=== PATIENT | male | born 1950 | race African-American/Black ===

== ENCOUNTER 2016-06-04 08:04 | Day surgery (SDC) | payer MEDICARE, MEDICAID ==
[~2016-06-04 08:04] MED LIST: ASPIRIN EC81 MG PO; BACTRIM DS TAB1 EAC2 PO; CLARITIN10 M6 PO; COREG6.25 M1 PO; COZAAR50 M1 PO; DELTASONE10 MG PO; DELTASONE20 MG PO; ENALAPRIL; ERY-TAB250 M1 PO; ESBRIET267 MG PO; FLOMAX0.4 M1 PO; FLONASE ALLERG9.9 ML; GLUCOPHAGE500 M3 PO; HUMALOG MI100 UNITS1 SC; HYDROCODON-ACE1 EA16 PO; LANTUS100 UNITS/ SC; METFORMIN HCL500 MG PO; MILK OF MAGNESIA PO; NEURONTIN400 M1 PO; NEURONTIN600 M1 PO; NEXIUM40 M1 PO; OMEPRAZOLE20 M3 PO; OXYGEN; PROVENTIL HFA6.7 GM IH; STOOL SOFTENER1 EAC4 PO; TESSALON PERLE100 M1 PO; VASOTEC20 M1 PO; VENTOLIN HFA18 G2 PO; ZOCOR40 M1 PO
[2016-06-04] MEDS ORDERED: HUMALOG100 UNIT/2 SC (09:16)
[2016-06-04] MEDS ORDERED: PREDNISONE10 M1 PO (09:17)
[2016-06-04] MEDS ORDERED: NEURONTIN300 M1 PO (09:17)
[2016-06-04] MEDS ORDERED: NEURONTIN300 M1 (09:18)
[2016-06-04 09:35] LABS: BASO % 0.2 % (0-2); EOSINOPHIL ABSOLUTE COUNT 0.1 tho/cmm (0.0-0.7); HCT-HEMATOCRIT 34.6 % (36.0-53.5); HGB-HEMOGLOBIN 11.1 gm/dl (13.5-17.0); IMMATURE GRANULOCYTES ABSOLUTE 0.03 tho/cmm (0-0.03); IMMATURE GRANULOCYTES PERCENT 0.3 % (0-0.3); LYMPH % 16.8 % (20-45); LYMPH ABSOLUTE COUNT 1.8 tho/cmm (0.8-4.5); MCH (MEAN CORPUSCULAR HGB) 26.8 pg (28.0-32.0); MCHC MEAN CORPUSCULAR HGB CONC 32.1 % (32.0-36.0); MCV (MEAN CELL VOLUME) 83.6 fl (82.0-96.0); MEAN PLATELET VOLUME 9.6 cmc (9.4-12.4); MONO % 4.7 % (0-12); MONOCYTE ABSOLUTE COUNT 0.5 tho/cmm (0.0-1.2); NEUTROPHIL ABSOLUTE COUNT 8.2 tho/cmm (1.6-8.0); NEUTROPHIL-AUTOMATED 8.2 tho/cmm (1.6-8.0); PLATELET COUNT 248 tho/cmm (150-450); RED BLOOD COUNT 4.14 mil/cmm (4.40-5.70); RED CELL DISTRIBUTION WIDTH 16.3 % (12.4-16.4); WHITE BLOOD COUNT 10.6 tho/cmm (4.0-10.0)
[2016-06-04 09:47] LABS: ANION GAP 11 mmol/L (0-20); BLOOD UREA NITROGEN 11 mg/dl (6-24); CALCIUM 8.5 mg/dl (8.5-10.5); CARBON DIOXIDE-VENOUS 28 mmol/L (22-32); CHLORIDE 102 mmol/l (96-110); CREATININE 0.81 mg/dl (0.60-1.30); GLUCOSE 193 mg/dL (70-110); SODIUM 137 mmol/L (135-145); eGFR VALUE FOR BLACK >90 mL/Min
--- NOTE | 2016-06-05 07:55 | NUR ---
ESTRELLA MULLEN NOTE-VISITED WITH PATIENT HE WAS SITTING UP IN CHAIR STATING HE IS NOT DOING VERY WELL. STATES THE BACK OF HIS LEFT LEG HURTS AND IS SLIGHTLY PUFFY AND CAUSES HIM TO LIMP WHEN HE WALKS. BRISEYDA SAYS HE USUALLY DOES HAVE PROBLEMS WITH HIS LEG BUT THIS IS DIFFERENT AND IT IS NOT RELATED TO THE POSITIONING ON THE TABLE FOR SURGERY. HE DOES NOT FEEL COMFORTABLE WITH HIS LEG FEELING THIS WAY AND DOES NOT WANT TO GO HOME YET HE DOES NOT FEEL SAFE BEING AT HOME BY HIMSELF AND WILL NOT HAVE ANYONE THERE UNTIL FRIDAY. HE ALSO SAID HE WILL NEED TO HAVE SOMEONE CHECK HIS HOME O2 TANK PRIOR TO HIM LEAVING THE OXYGEN EVAPORATES. HE ALSO REQUESTED SOME BRAN CEREAL HE HAS NOT HAD A BM YET. PATIENT HAD NO OTHER QUESTIONS OR CONCERNS AT THIS TIME. PAGED RESPIRATORY AND AID FOR THE BRAN CEREAL.
[2016-06-06] MEDS ORDERED: PERCOCET 5-3251 EACH PO (11:55)
[2016-06-06] MEDS ORDERED: COLACE100 M1 PO (11:56)
== END 2016-06-06 14:45 ==
LOC: SRG 08:04 → SHSB 08:09 → ORW 10:07 → PACU 11:38 → SHSB 13:23 → 5WD 16:10
PROVIDERS: Anesthesiology; Colon & Rectal Surgery
PROC: 06BY0ZC Excision of Hemorrhoidal Plexus, Open Approach (ICD-10-PCS; principal; 2016-06-04)
DX: K64.3 Fourth degree hemorrhoids (principal); K64.2 Third degree hemorrhoids; K64.4 Residual hemorrhoidal skin tags; I10 Essential (primary) hypertension; E11.40 Type 2 diabetes mellitus with diabetic neuropathy, unspecified; F41.0 Panic disorder [episodic paroxysmal anxiety]; F43.10 Post-traumatic stress disorder, unspecified; F41.9 Anxiety disorder, unspecified; F32.9 Major depressive disorder, single episode, unspecified; J45.909 Unspecified asthma, uncomplicated; E78.5 Hyperlipidemia, unspecified; K21.9 Gastro-esophageal reflux disease without esophagitis; Z79.4 Long term (current) use of insulin; Z79.82 Long term (current) use of aspirin; Z79.84 Long term (current) use of oral hypoglycemic drugs; Z79.899 Other long term (current) drug therapy; Z83.3 Family history of diabetes mellitus; Z98.890 Other specified postprocedural states; M79.662 Pain in left lower leg; R60.9 Edema, unspecified
CPT/HCPCS: C9290; J0131; J0171; J1170; J1815; J2270; J2405; J3010; J7512